=== PATIENT | female | born 1960 | race Caucasian/White ===

== ENCOUNTER → 2017-08-03 | Outpatient (CLI) | payer BC, OTHER | LOC: RAD 12:41 | DX: M48.56XA Collapsed vertebra, not elsewhere classified, lumbar region, initial encounter for fracture (principal); M47.896 Other spondylosis, lumbar region ==

== ENCOUNTER → 2019-07-06 | Outpatient (CLI) | payer BC, OTHER | LOC: RAD 11:07 | DX: Z12.31 Encounter for screening mammogram for malignant neoplasm of breast (principal) ==

== ENCOUNTER → 2019-11-13 | Outpatient (CLI) | payer OTHER | LOC: MRI 08:17 | DX: S32.029A Unspecified fracture of second lumbar vertebra, initial encounter for closed fracture (principal); S32.049A Unspecified fracture of fourth lumbar vertebra, initial encounter for closed fracture; M41.86 Other forms of scoliosis, lumbar region; M51.35 Other intervertebral disc degeneration, thoracolumbar region; M51.16 Intervertebral disc disorders with radiculopathy, lumbar region; M48.062 Spinal stenosis, lumbar region with neurogenic claudication; M43.8X6 Other specified deforming dorsopathies, lumbar region; X58.XXXA Exposure to other specified factors, initial encounter; Y93.89 Activity, other specified; Y92.89 Other specified places as the place of occurrence of the external cause; Y99.8 Other external cause status ==

== ENCOUNTER → 2019-12-20 | Outpatient (CLI) | payer BC, OTHER | LOC: MRI 06:41 → RAD 06:53 → MRI 13:34 | DX: M18.11 Unilateral primary osteoarthritis of first carpometacarpal joint, right hand (principal); V89.2XXA Person injured in unspecified motor-vehicle accident, traffic, initial encounter ==

== ENCOUNTER → 2020-03-12 | Outpatient (CLI) | payer BC, OTHER | LOC: RAD 13:44 | DX: M25.552 Pain in left hip (principal) ==

== ENCOUNTER → 2020-08-20 | Outpatient (CLI) | payer BC, OTHER | LOC: RAD 13:01 | PROVIDERS: ATTEND Obstetrics & Gynecology | DX: Z12.31 Encounter for screening mammogram for malignant neoplasm of breast (principal) ==

== ENCOUNTER → 2021-09-11 | Outpatient (CLI) | payer BC | LOC: RAD 15:04 | PROVIDERS: ATTEND Obstetrics & Gynecology | DX: Z12.31 Encounter for screening mammogram for malignant neoplasm of breast (principal); N64.89 Other specified disorders of breast ==